=== PATIENT | female | born 2000 | race Caucasian/White ===

== ENCOUNTER 2020-07-23 04:10 | Emergency (ER) | payer OTHER ==
[~2020-07-23] VITALS: Ht 157.5 cm; Wt 81.8 kg
[2020-07-23 04:11] VITALS: TEMP 98.7
[2020-07-23] MEDS ORDERED: PHENERGAN 25 TA25 MG PO (04:25)
[2020-07-23 05:48] VITALS: BP 122/75; PULSE 74
== END 2020-07-23 05:48 | disposition home or self-care (01) ==
LOC: COL.ER 04:10
DX: J06.9 Acute upper respiratory infection, unspecified (principal); R11.2 Nausea with vomiting, unspecified; Z20.828 Contact with and (suspected) exposure to other viral communicable diseases
CPT/HCPCS: J1885; J2550